=== PATIENT | female | born 1940 | race Caucasian/White ===

== ENCOUNTER 2016-10-09 19:13 | Emergency (ER) | payer MEDICARE ==
[~2016-10-09] VITALS: Ht 154.9 cm; Wt 70.8 kg
[2016-10-09] MEDS ORDERED: NS 500 ML IV ONE (20:15)
[2016-10-09 20:31] LABS: VENOUS BASE EXCESS -0.1 (-2.0-2.0); VENOUS O2 SATURATION 76.8 % (60.0-80.0); VENOUS PARTIAL PRESSURE CO2 41.8 mmHg (38.0-50.0); VENOUS PARTIAL PRESSURE O2 42.4 mmHg (30.0-50.0); VENOUS TOTAL CO2 26.2 MEQ/L (24.0-28.0)
[2016-10-09 21:05] LABS: BASO % 0.4 % (0.0-1.0); EOS # 0.2 K/mm3 (0.0-0.50); EOS % 2.4 % (0.0-3.0); LARGE UNSTAINED CELL # 0.1 K/mm3 (0.0-0.4); LARGE UNSTAINED CELL % 1.4 % (0.0-4.0); LYMPH # 1.8 K/mm3 (1.5-4.5); LYMPH % 24.4 % (24.0-44.0); MEAN CORPUSCULAR HEMOGLOBIN 32.7 pg (27.0-33.0); MEAN CORPUSCULAR HGB CONC 33.6 g/dl (32.0-36.5); MEAN CORPUSCULAR VOLUME 97.3 fl (80.0-96.0); MONO # 0.4 K/mm3 (0.0-0.8); MONO % 5.7 % (0.0-5.0); NEUTROPHILS # 4.9 K/mm3 (1.8-7.7); NEUTROPHILS % 65.7 % (36.0-66.0); PLATELET COUNT, AUTOMATED 148 k/mm3 (150-450); RED CELL DISTRIBUTION WIDTH 12.7 % (11.5-14.5); WHITE BLOOD COUNT 7.4 K/mm3 (4.0-10.0)
[2016-10-09 21:06] LABS: ANION GAP 9 MEQ/L (8-16); BLOOD UREA NITROGEN 16 MG/DL (7-18); CALCIUM LEVEL 8.6 MG/DL (8.8-10.2); CARBON DIOXIDE LEVEL 26 MEQ/L (21-32); CHLORIDE LEVEL 102 MEQ/L (98-107); CREATININE FOR GFR 1.03 MG/DL (0.55-1.02); GLOMERULAR FILTRATION RATE 55.2 (>39); GLUCOSE, FASTING 209 MG/DL (83-110); MAGNESIUM LEVEL 1.7 MG/DL (1.8-2.4); SODIUM LEVEL 137 MEQ/L (136-145)
[2016-10-09 22:11] VITALS: BP 156/109
[2016-10-09] MEDS ORDERED: MAG SULF 1GM/100ML (MAG RUN) 1 GM in APPROPRIATE DILUENT 1 EA IV ONE (22:30)
--- NOTE | 2016-10-10 21:01 | ECGEPIP ---
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
== END 2016-10-10 00:23 | disposition home or self-care (01) ==
LOC: EDBD 19:13 → M ED 20:08
DX: R53.1 Weakness (principal); E83.42 Hypomagnesemia; I25.10 Atherosclerotic heart disease of native coronary artery without angina pectoris; I25.2 Old myocardial infarction; M48.00 Spinal stenosis, site unspecified; I10 Essential (primary) hypertension; N81.89 Other female genital prolapse; E11.9 Type 2 diabetes mellitus without complications; M54.9 Dorsalgia, unspecified
CPT/HCPCS: 36415; 80048; 82550; 82553; 82803; 83735; 84484; 85025; 93005; 93041; 96361; 96374; 99284; J3475

== ENCOUNTER → 2017-04-13 | Outpatient (CLI) | payer MEDICARE ==
--- NOTE | 2017-04-13 09:49 | REP ---
Abdominal right upper quadrant ultrasound: Comparison is 09/23/2009. There is no cholelithiasis, gallbladder wall thickening or pericholecystic fluid. There is no intrahepatic or extrahepatic biliary duct dilatation. The common duct measures 5.1 mm in diameter. The hepatic parenchyma is homogeneous and otherwise unremarkable. The visualized portion of the pancreatic head is unremarkable. The pancreatic body and tail are obscured by bowel gas. The right kidney is normal size measuring 12.1 cm craniocaudad length. There is 1.2 cm mid pole cyst. There is no solid mass. No calculus or hydronephrosis. Vascular atheromatous calcifications are incidentally noted. There is no free fluid in the abdominal right upper quadrant. Impression: Essentially negative abdominal right upper quadrant ultrasound. A right renal cyst is incidentally identified. The pancreas body and tail are obscured by bowel gas. Signed by Jose Aleman MD 04/13/2017 09:40 A
== END ==
LOC: M RAD 08:15
PROVIDERS: ATTEND Internal Medicine Cardiovascular Disease
DX: R94.5 Abnormal results of liver function studies (principal)

== ENCOUNTER → 2017-06-20 | Outpatient (CLI) | payer MEDICARE ==
[2017-06-20 09:53] LABS: MEAN CORPUSCULAR HEMOGLOBIN 34.9 pg (27.0-33.0); MEAN CORPUSCULAR VOLUME 96.8 fl (80.0-96.0); PLATELET COUNT, AUTOMATED 159 10^3/uL (150-450); RED CELL DISTRIBUTION WIDTH 13.9 % (11.5-14.5)
[2017-06-20 10:14] LABS: ERYTHROCYTE SEDIMENTATION RATE 65 mm/hr (0-30)
[2017-06-20 10:18] LABS: ALBUMIN 2.8 GM/DL (3.2-5.2); ALBUMIN/GLOBULIN RATIO 0.78 (1.00-1.93); ALKALINE PHOSPHATASE 371 U/L (45-117); ALT/SGPT 64 U/L (12-78); ANION GAP 10 MEQ/L (8-16); AST/SGOT 95 U/L (7-37); BILIRUBIN,TOTAL 1.6 MG/DL (0.2-1.0); BLOOD UREA NITROGEN 16 MG/DL (7-18); CALCIUM LEVEL 9.7 MG/DL (8.8-10.2); CARBON DIOXIDE LEVEL 24 MEQ/L (21-32); CHLORIDE LEVEL 103 MEQ/L (98-107); CHOLESTEROL LEVEL 184 MG/DL (<200); CREATININE FOR GFR 0.76 MG/DL (0.55-1.02); GLOMERULAR FILTRATION RATE > 60.0 (>39); GLUCOSE, FASTING 138 MG/DL (83-110); MAGNESIUM LEVEL 1.7 MG/DL (1.8-2.4); POTASSIUM SERUM 4.3 MEQ/L (3.5-5.1); SODIUM LEVEL 137 MEQ/L (136-145); TOTAL PROTEIN 6.4 GM/DL (6.4-8.2); TRIGLYCERIDES LEVEL 102 MG/DL (<150)
== END ==
LOC: M LAB 08:31
PROVIDERS: ATTEND Family Medicine
DX: D64.9 Anemia, unspecified (principal); R53.83 Other fatigue; E11.9 Type 2 diabetes mellitus without complications

== ENCOUNTER 2017-07-12 08:26 | Inpatient (IN) | payer MEDICARE ==
[2017-07-12] MEDS ORDERED: LOSARTAN 50 MG TAB PO (09:00)
[2017-07-12] MEDS ORDERED: ISOSORBIDE MON. (IMDUR) 30 MG XR TAB PO (09:00)
[2017-07-12] MEDS: ENOXAPARIN 30 MG/0.3 ML SYR (J1650) SC (09:00)
[2017-07-12] MEDS: NS 500 ML IV (09:45)
[2017-07-12 09:52] LABS: AMMONIA 73 uMOL/L (<32)
[2017-07-12 09:57] LABS: ALBUMIN/GLOBULIN RATIO 0.81 (1.00-1.93); ALKALINE PHOSPHATASE 456 U/L (45-117); ALT/SGPT 89 U/L (12-78); ANION GAP 10 MEQ/L (8-16); AST/SGOT 141 U/L (7-37); BILIRUBIN,DIRECT 1.8 MG/DL (0.0-0.2); BILIRUBIN,TOTAL 2.6 MG/DL (0.2-1.0); BLOOD UREA NITROGEN 20 MG/DL (7-18); CALCIUM LEVEL 9.4 MG/DL (8.8-10.2); CARBON DIOXIDE LEVEL 26 MEQ/L (21-32); CHLORIDE LEVEL 104 MEQ/L (98-107); CREATININE FOR GFR 0.87 MG/DL (0.55-1.02); GLOMERULAR FILTRATION RATE > 60.0 (>39); GLUCOSE, FASTING 144 MG/DL (83-110); POTASSIUM SERUM 3.1 MEQ/L (3.5-5.1); SODIUM LEVEL 140 MEQ/L (136-145); TOTAL PROTEIN 6.7 GM/DL (6.4-8.2)
[2017-07-12 10:02] LABS: BASO % 0.5 % (0.0-1.0); EOS # 0.1 10^3/uL (0.0-0.50); EOS % 1.7 % (0.0-3.0); HEMATOCRIT 38.6 % (36.0-47.0); HEMOGLOBIN 13.8 g/dl (12.0-16.0); IMMATURE GRANULOCYTE % 0.4 % (0-0); LYMPH # 1.9 10^3/uL (1.5-4.5); LYMPH % 25.6 % (24.0-44.0); MEAN CORPUSCULAR HEMOGLOBIN 34.4 pg (27.0-33.0); MEAN CORPUSCULAR HGB CONC 35.8 g/dl (32.0-36.5); MEAN CORPUSCULAR VOLUME 96.3 fl (80.0-96.0); MONO # 0.7 10^3/uL (0.0-0.8); MONO % 8.9 % (0.0-5.0); NEUTROPHILS # 4.7 10^3/uL (1.8-7.7); NEUTROPHILS % 62.9 % (36.0-66.0); PLATELET COUNT, AUTOMATED 153 10^3/uL (150-450); RED BLOOD COUNT 4.01 10^6/uL (4.00-5.40); RED CELL DISTRIBUTION WIDTH 13.7 % (11.5-14.5); WHITE BLOOD COUNT 7.5 10^3/uL (4.0-10.0)
[2017-07-12 10:10] LABS: INR 0.95; PROTHROMBIN TIME 12.8 SECONDS (12.4-14.5)
[2017-07-12 10:11] LABS: PARTIAL THROMBOPLASTIN TIME 34.7 SECONDS (26.8-37.9)
[2017-07-12] MEDS: LACTULOSE 20 GM/30 ML SYRUP UD PO ×2 (11:03→12:39)
[2017-07-12] MEDS ORDERED: ONDANSETRON 4MG/2ML VIAL (J2405) IV (11:15)
[2017-07-12] MEDS ORDERED: ACETAMINOPHEN 650 MG SUPP PR (11:15)
[2017-07-12] MEDS: GASTROGRAFIN SOLUTION 30ML PO (11:30)
[2017-07-12] MEDS: GASTROGRAFIN SOLUTION 30ML (Q9963) PO (12:00)
[2017-07-12] MEDS: HumaLOG INSULIN (NovoLOG) PER UNIT SC ×3 (12:00→21:00)
[2017-07-12] MEDS ORDERED: GLUCOSE 4 GM CHEW TABLET PO (12:15)
[2017-07-12] MEDS ORDERED: DEXTROSE 50% 50 ML SYRINGE IV (12:15)
[2017-07-12] MEDS ORDERED: GLUCAGON FOR INJ 1 MG VIAL (J1610) SC (12:15)
[2017-07-12 12:34] LABS: BEDSIDE GLUCOSE 134 MG/DL (83-110)
[2017-07-12] MEDS: LOSARTAN 50 MG TAB PO (12:39)
[2017-07-12] MEDS: KCL 10MEQ IN D5/0.45NS 1000ML 1,000 ML IV (12:39)
[2017-07-12] MEDS: CARVedilol 6.25 MG TAB PO ×2 (12:39→21:00)
[2017-07-12] MEDS: PANTOPRAZOLE 40MG INJ (PROTONIX) (C9113) IV (12:39)
[2017-07-12] MEDS: amLODIPine 10 MG TAB PO (12:39)
[2017-07-12] MEDS ORDERED: ISOVUE-370 76% 100ML VIAL (Q9967) As Ordered (13:00)
[2017-07-12] MEDS: ISOSORBIDE MONONITRATE 10MG TABLET PO (13:42)
[2017-07-12 13:46] LABS: ALPHA FETOPROTEIN TUMOR QUANT 3.2 NG/ML (<8.1); CARCINOEMBRYONIC ANTIGEN 2.3 NG/ML (<2.5)
[2017-07-12 14:15] LABS: CA19-9 TUMOR MARKER,CARBOHYDRA 130.6 U/ML (<35.0)
[2017-07-12 17:13] LABS: BEDSIDE GLUCOSE 154 MG/DL (83-110)
[2017-07-12] MEDS: FLUoxetine 20 MG CAP PO (17:19)
[2017-07-12 18:35] LABS: CK-MB VALUE MASS 1.2 NG/ML (0.0-3.6); CPK CREATINE PHOSPHOKINASE 47 U/L (26-192); MB/CK RELATIVE INDEX 2.55 (< OR =4); TROPONIN I 0.02 NG/ML (< 0.10)
[2017-07-12] MEDS: ATORVASTATIN 20 MG TAB PO (21:00)
[2017-07-12 21:21] LABS: BEDSIDE GLUCOSE 165 MG/DL (83-110)
[2017-07-12 23:52] LABS: AMMONIA 108 uMOL/L (<32)
[2017-07-12 23:55] LABS: CPK CREATINE PHOSPHOKINASE 42 U/L (26-192); TROPONIN I 0.02 NG/ML (< 0.10)
[2017-07-12 23:56] LABS: MB/CK RELATIVE INDEX 2.38 (< OR =4)
[2017-07-13] MEDS: KCL 10MEQ IN D5/0.45NS 1000ML 1,000 ML IV ×2 (01:06→18:31)
[2017-07-13 05:48] LABS: BASO % 0.5 % (0.0-1.0); EOS # 0.2 10^3/uL (0.0-0.50); EOS % 2.1 % (0.0-3.0); HEMATOCRIT 31.1 % (36.0-47.0); IMMATURE GRANULOCYTE % 0.1 % (0-0); LYMPH # 2.3 10^3/uL (1.5-4.5); LYMPH % 31.2 % (24.0-44.0); MEAN CORPUSCULAR HEMOGLOBIN 34.9 pg (27.0-33.0); MEAN CORPUSCULAR HGB CONC 35.7 g/dl (32.0-36.5); MEAN CORPUSCULAR VOLUME 97.8 fl (80.0-96.0); MONO # 0.7 10^3/uL (0.0-0.8); MONO % 9.6 % (0.0-5.0); NEUTROPHILS # 4.1 10^3/uL (1.8-7.7); NEUTROPHILS % 56.5 % (36.0-66.0); PLATELET COUNT, AUTOMATED 117 10^3/uL (150-450); RED BLOOD COUNT 3.18 10^6/uL (4.00-5.40); RED CELL DISTRIBUTION WIDTH 14.1 % (11.5-14.5); WHITE BLOOD COUNT 7.3 10^3/uL (4.0-10.0)
[2017-07-13 05:53] LABS: HEMOGLOBIN 11.1 g/dl (12.0-16.0)
[2017-07-13 06:13] LABS: AMMONIA 91 uMOL/L (<32)
[2017-07-13 06:19] LABS: ALBUMIN 2.5 GM/DL (3.2-5.2); ALBUMIN/GLOBULIN RATIO 0.78 (1.00-1.93); ALKALINE PHOSPHATASE 393 U/L (45-117); ALT/SGPT 77 U/L (12-78); ANION GAP 11 MEQ/L (8-16); AST/SGOT 120 U/L (7-37); BILIRUBIN,TOTAL 2.1 MG/DL (0.2-1.0); BLOOD UREA NITROGEN 19 MG/DL (7-18); CALCIUM LEVEL 8.7 MG/DL (8.8-10.2); CARBON DIOXIDE LEVEL 24 MEQ/L (21-32); CHLORIDE LEVEL 108 MEQ/L (98-107); CHOLESTEROL LEVEL 168 MG/DL (<200); CHOLESTEROL RISK RATIO 5.419 (<5); CREATININE FOR GFR 0.87 MG/DL (0.55-1.02); GLOMERULAR FILTRATION RATE > 60.0 (>39); GLUCOSE, FASTING 144 MG/DL (83-110); HDL CHOLESTEROL 31 MG/DL (>40); LDL CHOLESTEROL 114.4 MG/DL (<100); MAGNESIUM LEVEL 1.7 MG/DL (1.8-2.4); NON-HDL-C 137 MG/DL; POTASSIUM SERUM 3.2 MEQ/L (3.5-5.1); SODIUM LEVEL 143 MEQ/L (136-145); TOTAL PROTEIN 5.7 GM/DL (6.4-8.2); TRIGLYCERIDES LEVEL 113 MG/DL (<150)
[2017-07-13 06:23] LABS: ESTIMATED AVERAGE GLUCOSE 123 MG/DL (60-110); HEMOGLOBIN A1c 5.9 %
[2017-07-13] MEDS: HumaLOG INSULIN (NovoLOG) PER UNIT SC ×4 (07:37→21:00)
[2017-07-13] MEDS: LACTULOSE 20 GM/30 ML SYRUP UD PO ×4 (09:02→18:42)
[2017-07-13] MEDS: POTASSIUM CHLORIDE 10 MEQ SR TABLET PO (09:03)
[2017-07-13] MEDS: MAG SULF 1GM/100ML (MAG RUN) 1 GM in APPROPRIATE DILUENT 1 EA IV (09:04)
[2017-07-13] MEDS ORDERED: PROHANCE 279.3MG/ML 15ML VIAL (A9576) As Ordered (09:47)
[2017-07-13] MEDS: PANTOPRAZOLE 40MG INJ (PROTONIX) (C9113) IV (11:50)
[2017-07-13] MEDS: FLUoxetine 20 MG CAP PO (11:54)
[2017-07-13] MEDS: ISOSORBIDE MON. (IMDUR) 30 MG XR TAB PO (11:54)
[2017-07-13] MEDS: LOSARTAN 50 MG TAB PO (11:54)
[2017-07-13] MEDS: CARVedilol 6.25 MG TAB PO ×2 (11:55→21:08)
[2017-07-13 12:11] LABS: AMMONIA 43 uMOL/L (<32)
[2017-07-13 12:21] LABS: BEDSIDE GLUCOSE 142 MG/DL (83-110)
[2017-07-13] MEDS ORDERED: LIDOCAINE 1% MDV 20ML VIAL As Ordered (12:43)
[2017-07-13 18:10] LABS: BEDSIDE GLUCOSE 138 MG/DL (83-110)
[2017-07-13 18:12] LABS: AMMONIA 36 uMOL/L (<32)
[2017-07-13] MEDS: ATORVASTATIN 20 MG TAB PO (21:08)
[2017-07-13] MEDS: amLODIPine 5 MG TAB PO (21:09)
[2017-07-13 21:10] LABS: BEDSIDE GLUCOSE 171 MG/DL (83-110)
[2017-07-14 00:30] LABS: AMMONIA 64 uMOL/L (<32)
[2017-07-14] MEDS: LACTULOSE 20 GM/30 ML SYRUP UD PO ×2 (01:34→06:46)
[2017-07-14] MEDS: KCL 10MEQ IN D5/0.45NS 1000ML 1,000 ML IV (06:46)
[2017-07-14 07:27] LABS: BASO % 0.4 % (0.0-1.0); EOS # 0.1 10^3/uL (0.0-0.50); HEMATOCRIT 32.5 % (36.0-47.0); HEMOGLOBIN 11.4 g/dl (12.0-16.0); IMMATURE GRANULOCYTE % 0.3 % (0-0); LYMPH # 1.8 10^3/uL (1.5-4.5); LYMPH % 25.2 % (24.0-44.0); MEAN CORPUSCULAR HEMOGLOBIN 34.3 pg (27.0-33.0); MEAN CORPUSCULAR HGB CONC 35.1 g/dl (32.0-36.5); MEAN CORPUSCULAR VOLUME 97.9 fl (80.0-96.0); MONO # 0.7 10^3/uL (0.0-0.8); MONO % 10.1 % (0.0-5.0); NEUTROPHILS # 4.4 10^3/uL (1.8-7.7); PLATELET COUNT, AUTOMATED 126 10^3/uL (150-450); RED BLOOD COUNT 3.32 10^6/uL (4.00-5.40); RED CELL DISTRIBUTION WIDTH 14.4 % (11.5-14.5); WHITE BLOOD COUNT 7.1 10^3/uL (4.0-10.0)
[2017-07-14 07:42] LABS: AMMONIA 55 uMOL/L (<32)
[2017-07-14 07:48] LABS: ALBUMIN 2.7 GM/DL (3.2-5.2); ALBUMIN/GLOBULIN RATIO 0.75 (1.00-1.93); ALKALINE PHOSPHATASE 427 U/L (45-117); ALT/SGPT 96 U/L (12-78); ANION GAP 9 MEQ/L (8-16); AST/SGOT 180 U/L (7-37); BILIRUBIN,TOTAL 2.8 MG/DL (0.2-1.0); BLOOD UREA NITROGEN 14 MG/DL (7-18); CALCIUM LEVEL 8.6 MG/DL (8.8-10.2); CARBON DIOXIDE LEVEL 20 MEQ/L (21-32); CHLORIDE LEVEL 111 MEQ/L (98-107); CREATININE FOR GFR 1.02 MG/DL (0.55-1.02); GLOMERULAR FILTRATION RATE 55.7 (>39); GLUCOSE, FASTING 169 MG/DL (83-110); POTASSIUM SERUM 3.7 MEQ/L (3.5-5.1); SODIUM LEVEL 140 MEQ/L (136-145); TOTAL PROTEIN 6.3 GM/DL (6.4-8.2)
[2017-07-14] MEDS: PANTOPRAZOLE 40MG INJ (PROTONIX) (C9113) IV (08:41)
[2017-07-14] MEDS: HumaLOG INSULIN (NovoLOG) PER UNIT SC (08:41)
[2017-07-14] MEDS: FLUoxetine 20 MG CAP PO (08:48)
[2017-07-14] MEDS: ISOSORBIDE MON. (IMDUR) 30 MG XR TAB PO (08:48)
[2017-07-14] MEDS: LOSARTAN 50 MG TAB PO (08:49)
[2017-07-14] MEDS: CARVedilol 6.25 MG TAB PO (08:49)
[2017-07-14] MEDS: rifAXIMin 550 MG TAB (XIFAXAN) PO (11:56)
== END 2017-07-14 12:05 | disposition home or self-care (01) | DRG 442 ==
LOC: M MSPAV 07-13 15:52 → M PED 07-13 21:29 → M ED 08:26 → M ED INP 11:01 → M PCU 15:45
PROC: 0FB03ZX Excision of Liver, Percutaneous Approach, Diagnostic (ICD-10-PCS; principal; 2017-07-13)
DX: K72.90 Hepatic failure, unspecified without coma (principal); C22.1 Intrahepatic bile duct carcinoma; R16.0 Hepatomegaly, not elsewhere classified; K74.60 Unspecified cirrhosis of liver; I25.10 Atherosclerotic heart disease of native coronary artery without angina pectoris; I25.2 Old myocardial infarction; E78.00 Pure hypercholesterolemia, unspecified; I10 Essential (primary) hypertension; E11.9 Type 2 diabetes mellitus without complications; M51.36 Other intervertebral disc degeneration, lumbar region; Z79.899 Other long term (current) drug therapy; Z79.82 Long term (current) use of aspirin; E78.5 Hyperlipidemia, unspecified

== ENCOUNTER → 2017-08-01 | Outpatient (REF) | payer MEDICARE ==
[2017-08-02 09:21] LABS: CARCINOEMBRYONIC ANTIGEN 2.6 NG/ML (<2.5)
[2017-08-02 09:50] LABS: CA19-9 TUMOR MARKER,CARBOHYDRA 144.2 U/ML (<35.0)
== END ==
LOC: M LAB REF 17:14
DX: C24.9 Malignant neoplasm of biliary tract, unspecified (principal)
CPT/HCPCS: 82378

== ENCOUNTER 2017-08-04 09:12 | Observation (INO) | payer MEDICARE ==
[2017-08-04 10:01] LABS: BEDSIDE GLUCOSE 139 MG/DL (83-110)
[2017-08-04 10:23] LABS: BASO % 0.4 % (0.0-1.0); EOS # 0.2 10^3/uL (0.0-0.50); EOS % 2.6 % (0.0-3.0); HEMATOCRIT 32.7 % (36.0-47.0); HEMOGLOBIN 11.7 g/dl (12.0-16.0); IMMATURE GRANULOCYTE % 0.4 % (0-0); LYMPH # 1.9 10^3/uL (1.5-4.5); LYMPH % 24.5 % (24.0-44.0); MEAN CORPUSCULAR HEMOGLOBIN 35.3 pg (27.0-33.0); MEAN CORPUSCULAR HGB CONC 35.8 g/dl (32.0-36.5); MEAN CORPUSCULAR VOLUME 98.8 fl (80.0-96.0); MONO # 0.6 10^3/uL (0.0-0.8); MONO % 8.1 % (0.0-5.0); PLATELET COUNT, AUTOMATED 151 10^3/uL (150-450); RED BLOOD COUNT 3.31 10^6/uL (4.00-5.40); RED CELL DISTRIBUTION WIDTH 15.5 % (11.5-14.5); WHITE BLOOD COUNT 7.8 10^3/uL (4.0-10.0)
[2017-08-04 10:31] LABS: AMMONIA 38 uMOL/L (<32)
[2017-08-04 10:37] LABS: ALBUMIN 2.3 GM/DL (3.2-5.2); ALBUMIN/GLOBULIN RATIO 0.68 (1.00-1.93); ALKALINE PHOSPHATASE 634 U/L (45-117); ALT/SGPT 92 U/L (12-78); ANION GAP 12 MEQ/L (8-16); BILIRUBIN,DIRECT 3.8 MG/DL (0.0-0.2); BILIRUBIN,TOTAL 4.8 MG/DL (0.2-1.0); BLOOD UREA NITROGEN 19 MG/DL (7-18); CARBON DIOXIDE LEVEL 24 MEQ/L (21-32); CHLORIDE LEVEL 104 MEQ/L (98-107); CPK CREATINE PHOSPHOKINASE 33 U/L (26-192); CREATININE FOR GFR 1.19 MG/DL (0.55-1.30); GLOMERULAR FILTRATION RATE 46.6 (>39); GLUCOSE, FASTING 133 MG/DL (70-100); POTASSIUM SERUM 3.2 MEQ/L (3.5-5.1); SODIUM LEVEL 140 MEQ/L (136-145); TOTAL PROTEIN 5.7 GM/DL (6.4-8.2); TROPONIN I < 0.02 NG/ML (< 0.10)
[2017-08-04 10:43] LABS: AST/SGOT 191 U/L (7-37); MB/CK RELATIVE INDEX 3.03 (< OR =4)
[2017-08-04 12:37] LABS: KETONE, URINE AUTO RFX NEGATIVE (NEGATIVE); LEUKOCYTE ESTERASE UR AUTO RFX NEGATIVE (NEGATIVE); NITRITE, URINE AUTO RFX NEGATIVE (NEGATIVE); RBC, URINE AUTO RFX 1 /HPF (0-3); SPECIFIC GRAVITY UR AUTO RFX 1.011 (1.002-1.035); SQUAM EPITHELIAL CELL UR AURFX 0 /HPF (0-6); WBC, URINE AUTO RFX 2 /HPF (0-3)
[2017-08-04 13:41] LABS: NT-PRO BNP 762 PG/ML (<450)
[2017-08-04 13:45] LABS: INFLUENZA A AMPLIFICATION NEGATIVE (NEGATIVE); INFLUENZA B AMPLIFICATION NEGATIVE (NEGATIVE)
[2017-08-04 15:07] LABS: LIPASE 288 U/L (73-393)
[2017-08-04 15:22] LABS: MAGNESIUM LEVEL 1.9 MG/DL (1.8-2.4)
[2017-08-04 15:32] LABS: LACTIC ACID SEPSIS PROTOCOL 2.3 MMOL/L (0.4-2.0)
[2017-08-04 15:47] LABS: C REACTIVE PROTEIN QUANTITATIV 4.53 MG/DL (0.00-0.30)
[2017-08-04 16:41] LABS: INR 1.18; PROTHROMBIN TIME 15.2 SECONDS (12.4-14.5)
[2017-08-04 16:42] LABS: PARTIAL THROMBOPLASTIN TIME 36.9 SECONDS (26.8-37.9)
[2017-08-04] MEDS ORDERED: ONDANSETRON 4MG/2ML VIAL (J2405) IV ×2 (16:45)
[2017-08-04] MEDS ORDERED: ACETAMINOPHEN TAB 650MG DOSE (2X325MG) PO ×2 (16:45)
[2017-08-04] MEDS ORDERED: traMADol 50 MG TAB PO ×2 (17:00)
[2017-08-04 17:19] LABS: ERYTHROCYTE SEDIMENTATION RATE 67 mm/hr (0-30)
[2017-08-04] MEDS: LACTULOSE 20 GM/30 ML SYRUP UD PO ×2 (17:51)
[2017-08-04] MEDS: POTASSIUM CHLORIDE 10 MEQ SR TABLET PO ×2 (17:52)
[2017-08-04] MEDS: CARVedilol 6.25 MG TAB PO ×2 (17:52)
[2017-08-04] MEDS ORDERED: PROHANCE 279.3MG/ML 15ML VIAL (A9576) As Ordered ×2 (18:32)
[2017-08-04 19:06] LABS: BEDSIDE GLUCOSE 140 MG/DL (83-110)
[2017-08-04] MEDS: HumaLOG INSULIN (NovoLOG) PER UNIT SC ×2 (21:31)
[2017-08-04] MEDS: rifAXIMin 550 MG TAB (XIFAXAN) PO ×2 (21:32)
[2017-08-04] MEDS: DOCUSATE SODIUM 100 MG CAP PO ×2 (21:32)
[2017-08-04 21:34] LABS: BEDSIDE GLUCOSE 135 MG/DL (83-110)
[2017-08-04] MEDS: KCL 20MEQ in NS 1000ML 1,000 ML IV (21:38)
[2017-08-05] MEDS: LACTULOSE 20 GM/30 ML SYRUP UD PO ×6 (00:20→22:25)
[2017-08-05 06:42] LABS: BASO % 0.6 % (0.0-1.0); EOS # 0.2 10^3/uL (0.0-0.50); EOS % 2.1 % (0.0-3.0); HEMATOCRIT 30.1 % (36.0-47.0); HEMOGLOBIN 10.7 g/dl (12.0-16.0); IMMATURE GRANULOCYTE % 0.3 % (0-0); LYMPH # 2.1 10^3/uL (1.5-4.5); LYMPH % 29.4 % (24.0-44.0); MEAN CORPUSCULAR HEMOGLOBIN 35.7 pg (27.0-33.0); MEAN CORPUSCULAR HGB CONC 35.5 g/dl (32.0-36.5); MEAN CORPUSCULAR VOLUME 100.3 fl (80.0-96.0); MONO # 0.7 10^3/uL (0.0-0.8); MONO % 9.6 % (0.0-5.0); NEUTROPHILS # 4.1 10^3/uL (1.8-7.7); PLATELET COUNT, AUTOMATED 145 10^3/uL (150-450); RED CELL DISTRIBUTION WIDTH 15.9 % (11.5-14.5)
[2017-08-05 06:57] LABS: AMMONIA 29 uMOL/L (<32)
[2017-08-05 06:59] LABS: INR 1.26
[2017-08-05 07:00] LABS: PARTIAL THROMBOPLASTIN TIME 40.6 SECONDS (26.8-37.9)
[2017-08-05 07:02] LABS: ALBUMIN 2.1 GM/DL (3.2-5.2); ALBUMIN/GLOBULIN RATIO 0.57 (1.00-1.93); ALKALINE PHOSPHATASE 601 U/L (45-117); ALT/SGPT 89 U/L (12-78); ANION GAP 7 MEQ/L (8-16); AST/SGOT 204 U/L (7-37); BILIRUBIN,DIRECT 3.8 MG/DL (0.0-0.2); BLOOD UREA NITROGEN 16 MG/DL (7-18); CALCIUM LEVEL 8.2 MG/DL (8.8-10.2); CARBON DIOXIDE LEVEL 24 MEQ/L (21-32); CHLORIDE LEVEL 110 MEQ/L (98-107); CREATININE FOR GFR 0.97 MG/DL (0.55-1.30); GLUCOSE, FASTING 111 MG/DL (70-100); MAGNESIUM LEVEL 1.7 MG/DL (1.8-2.4); POTASSIUM SERUM 3.6 MEQ/L (3.5-5.1); SODIUM LEVEL 141 MEQ/L (136-145); TOTAL PROTEIN 5.8 GM/DL (6.4-8.2)
[2017-08-05] MEDS: HumaLOG INSULIN (NovoLOG) PER UNIT SC ×8 (07:54→20:54)
[2017-08-05] MEDS: FLUoxetine 20 MG CAP PO ×2 (08:56)
[2017-08-05] MEDS: hydroCHLOROthiazide 25 MG TAB PO ×2 (08:57)
[2017-08-05] MEDS: POTASSIUM CHLORIDE 10 MEQ SR TABLET PO ×2 (08:57)
[2017-08-05] MEDS: LOSARTAN 50 MG TAB PO ×2 (08:58)
[2017-08-05] MEDS: amLODIPine 5 MG TAB PO ×2 (08:58)
[2017-08-05] MEDS: ISOSORBIDE MON. (IMDUR) 30 MG XR TAB PO ×2 (08:58)
[2017-08-05] MEDS: CARVedilol 6.25 MG TAB PO ×4 (08:58→21:00)
[2017-08-05] MEDS: MAG SULF 1GM/100ML (MAG RUN) 1 GM in APPROPRIATE DILUENT 1 EA IV (08:59)
[2017-08-05] MEDS: DOCUSATE SODIUM 100 MG CAP PO ×4 (08:59→21:00)
[2017-08-05] MEDS: ENOXAPARIN 30 MG/0.3 ML SYR (J1650) SC ×2 (08:59)
[2017-08-05] MEDS: NYSTATIN 100,000 UNITS/GM TOPICAL PWD 15 GM TOP ×4 (10:00→22:25)
[2017-08-05] MEDS: KCL 20MEQ in NS 1000ML 1,000 ML IV (11:09)
[2017-08-05 11:34] LABS: BEDSIDE GLUCOSE 148 MG/DL (83-110)
[2017-08-05] MEDS: rifAXIMin 550 MG TAB (XIFAXAN) PO ×4 (12:20→22:23)
[2017-08-05] MEDS ORDERED: LACTULOSE 20 GM/30 ML SYRUP UD PO ×2 (18:00)
[2017-08-06 05:59] LABS: BEDSIDE GLUCOSE 106 MG/DL (83-110)
[2017-08-06 05:59] LABS: BEDSIDE GLUCOSE 102 MG/DL (83-110)
[2017-08-06 06:07] LABS: BASO # 0.1 10^3/uL (0.0-0.2); BASO % 0.6 % (0.0-1.0); EOS # 0.2 10^3/uL (0.0-0.50); EOS % 2.3 % (0.0-3.0); HEMATOCRIT 29.7 % (36.0-47.0); HEMOGLOBIN 10.4 g/dl (12.0-16.0); IMMATURE GRANULOCYTE % 0.3 % (0-0); LYMPH # 2.4 10^3/uL (1.5-4.5); MEAN CORPUSCULAR HEMOGLOBIN 35.9 pg (27.0-33.0); MEAN CORPUSCULAR VOLUME 102.4 fl (80.0-96.0); MONO # 0.7 10^3/uL (0.0-0.8); MONO % 9.3 % (0.0-5.0); NEUTROPHILS # 4.4 10^3/uL (1.8-7.7); NEUTROPHILS % 56.5 % (36.0-66.0); PLATELET COUNT, AUTOMATED 138 10^3/uL (150-450); RED CELL DISTRIBUTION WIDTH 16.2 % (11.5-14.5); WHITE BLOOD COUNT 7.8 10^3/uL (4.0-10.0)
[2017-08-06 06:17] LABS: INR 1.24; PROTHROMBIN TIME 15.8 SECONDS (12.4-14.5)
[2017-08-06 06:18] LABS: PARTIAL THROMBOPLASTIN TIME 40.1 SECONDS (26.8-37.9)
[2017-08-06 06:21] LABS: AMMONIA < 10 uMOL/L (<32)
[2017-08-06 06:28] LABS: ALBUMIN 2.1 GM/DL (3.2-5.2); ALBUMIN/GLOBULIN RATIO 0.57 (1.00-1.93); ALKALINE PHOSPHATASE 607 U/L (45-117); ALT/SGPT 87 U/L (12-78); ANION GAP 9 MEQ/L (8-16); AST/SGOT 194 U/L (7-37); BILIRUBIN,DIRECT 3.5 MG/DL (0.0-0.2); BILIRUBIN,TOTAL 4.4 MG/DL (0.2-1.0); BLOOD UREA NITROGEN 14 MG/DL (7-18); CALCIUM LEVEL 8.4 MG/DL (8.8-10.2); CARBON DIOXIDE LEVEL 23 MEQ/L (21-32); CHLORIDE LEVEL 111 MEQ/L (98-107); CREATININE FOR GFR 0.92 MG/DL (0.55-1.30); GLOMERULAR FILTRATION RATE > 60.0 (>39); GLUCOSE, FASTING 112 MG/DL (70-100); MAGNESIUM LEVEL 1.8 MG/DL (1.8-2.4); POTASSIUM SERUM 3.6 MEQ/L (3.5-5.1); SODIUM LEVEL 143 MEQ/L (136-145); TOTAL PROTEIN 5.8 GM/DL (6.4-8.2)
[2017-08-06] MEDS: HumaLOG INSULIN (NovoLOG) PER UNIT SC ×2 (08:25)
[2017-08-06] MEDS: DOCUSATE SODIUM 100 MG CAP PO ×2 (08:46)
[2017-08-06] MEDS: LOSARTAN 50 MG TAB PO ×2 (08:46)
[2017-08-06] MEDS: FLUoxetine 20 MG CAP PO ×2 (08:47)
[2017-08-06] MEDS: ISOSORBIDE MON. (IMDUR) 30 MG XR TAB PO ×2 (08:47)
[2017-08-06] MEDS: amLODIPine 10 MG TAB PO ×2 (08:47)
[2017-08-06] MEDS: ENOXAPARIN 30 MG/0.3 ML SYR (J1650) SC ×2 (08:48)
[2017-08-06] MEDS: hydroCHLOROthiazide 25 MG TAB PO ×2 (08:48)
[2017-08-06] MEDS: LACTULOSE 20 GM/30 ML SYRUP UD PO ×2 (08:48)
[2017-08-06] MEDS: rifAXIMin 550 MG TAB (XIFAXAN) PO ×2 (08:48)
[2017-08-06] MEDS: NYSTATIN 100,000 UNITS/GM TOPICAL PWD 15 GM TOP ×2 (08:49)
[2017-08-07] MEDS ORDERED: amLODIPine 10 MG TAB PO ×2 (09:00)
[2017-08-07 11:59] LABS: BEDSIDE GLUCOSE 115 MG/DL (83-110)
== END 2017-08-06 11:01 | disposition home or self-care (01) ==
LOC: M ED 09:12 → M ED INP 15:10 → M MSPAV 16:38
DX: R41.82 Altered mental status, unspecified (principal); R29.898 Other symptoms and signs involving the musculoskeletal system; I95.1 Orthostatic hypotension; C22.1 Intrahepatic bile duct carcinoma; G89.29 Other chronic pain; R33.9 Retention of urine, unspecified; D64.9 Anemia, unspecified; E87.6 Hypokalemia; E83.42 Hypomagnesemia; R79.89 Other specified abnormal findings of blood chemistry; I25.10 Atherosclerotic heart disease of native coronary artery without angina pectoris; I25.2 Old myocardial infarction; Z95.1 Presence of aortocoronary bypass graft; E11.9 Type 2 diabetes mellitus without complications; I11.9 Hypertensive heart disease without heart failure; E87.2 Acidosis; E78.5 Hyperlipidemia, unspecified; F41.9 Anxiety disorder, unspecified; Z96.89 Presence of other specified functional implants; M48.061 Spinal stenosis, lumbar region without neurogenic claudication; K72.90 Hepatic failure, unspecified without coma; I67.82 Cerebral ischemia; Z79.899 Other long term (current) drug therapy; Z79.84 Long term (current) use of oral hypoglycemic drugs
CPT/HCPCS: J3475